=== PATIENT | male | born 1940 | race Caucasian/White ===

== ENCOUNTER → 2017-03-31 | Outpatient (CLI) | payer MEDICARE, BC ==
[~2017-03-31] MED LIST: BUFFERED ASPIR325 M1 PO; FISH OIL1 IU PO; LORATADINE10 MG PO; LOTENSIN PO; LOTREL 10 MG-201 CAP PO; MIRALAX 17GM PK1 PKT PO; MULTIPLE VITAMI1 TAB PO; MVI PO; NITROSTAT0.4 MG SL; PRAVACHOL 40MG40 MG PO; PREVACID 30MG30 MG PO; TOPROL XL50 MG PO; TRICOR145 MG PO
== END ==
LOC: ZCOL.LAB 14:32
DX: Z01.812 Encounter for preprocedural laboratory examination (principal); Z86.14 Personal history of Methicillin resistant Staphylococcus aureus infection

== ENCOUNTER → 2017-04-17 | Outpatient (CLI) | payer MEDICARE, BC ==
[2017-04-17 08:52] LABS: CREATININE, serum 0.75 mg/dL (0.66-1.25)
== END ==
LOC: COL.LAB 08:11
PROVIDERS: Psychiatry & Neurology Neurology
DX: Z01.89 Encounter for other specified special examinations (principal)

== ENCOUNTER → 2019-03-17 | Outpatient (CLI) | payer MEDICARE, BC | LOC: ZCOL.LAB 10:51 | DX: Z11.2 Encounter for screening for other bacterial diseases (principal) ==

== ENCOUNTER → 2020-09-27 | Outpatient (CLI) | payer MEDICARE, BC | LOC: COL.RAD 09:14 | DX: M51.36 Other intervertebral disc degeneration, lumbar region (principal); M48.061 Spinal stenosis, lumbar region without neurogenic claudication ==